=== PATIENT | male | born 1990 | race Caucasian/White ===

== ENCOUNTER 2019-08-06 23:42 | Inpatient (IN) | payer MEDICAID, OTHER ==
[~2019-08-06] VITALS: Ht 182.9 cm; Wt 143.8 kg
[~2019-08-06 23:42] MED LIST: BENZ1TAB70 PO; CHOL400T33 PO; DIVA500T52 PO; HALO10 PO; RISP3 PO; RISPC50 IM
[2019-08-07] MEDS ORDERED: LORazepam 2 MG/ML VIAL IVP ONE (03:15)
[2019-08-07] MEDS ORDERED: SODIUM BICARBONATE 150 MEQ in SODIUM CHLORIDE 0.45% 1,000 ML IV ONE (03:15)
[2019-08-07 03:25] LABS: BASOPHILS % (AUTO) 0.4 % (0.0-2.0); EOSINOPHILS % (AUTO) 0.1 % (1.0-6.0); LYMPHOCYTES # (AUTO) 2.8 K/uL (1.0-4.8); LYMPHOCYTES % (AUTO) 18.7 % (22.0-44.0); MEAN CORPUSCULAR HEMOGLOBIN 30.3 pg (26.0-34.0); MEAN CORPUSCULAR VOLUME 89 fL (80-100); MONOCYTES # (AUTO) 1.8 K/uL (0.1-1.0); NEUTROPHILS # (AUTO) 10.2 K/uL (1.8-7.7); NEUTROPHILS % (AUTO) 68.8 % (40.0-70.0); PLATELET COUNT (AUTO) 384 K/uL (150-450); RED CELL DISTRIBUTION WIDTH 13.5 % (11.5-14.5)
[2019-08-07 03:33] LABS: ANION GAP 13 mmol/L (8-16); CARBON DIOXIDE 22 mmol/L (22-29); CHLORIDE 102 mmol/L (98-107); CREATININE 0.91 mg/dL (0.60-1.30); GLOMERULAR FILTR. RATE CALC > 60 mL/min (>60); GLUCOSE,RANDOM 88 mg/dL (70-110); POTASSIUM 3.4 mmol/L (3.5-5.1); SODIUM SERUM 137 mmol/L (136-145); UREA NITROGEN, BLOOD 8 mg/dL (7-18)
[2019-08-07 03:44] LABS: SALICYLATE < 2.8 mg/dL (2.8-20.0)
[2019-08-07 03:47] LABS: ALANINE AMINOTRANSFERASE 46 U/L (12-78); ALBUMIN 4.3 g/dL (3.4-5.0); ALKALINE PHOSPHATASE 125 U/L (46-116); ASPARTATE AMINOTRANSFERASE 34 U/L (15-37); BILIRUBIN,TOTAL 1.3 mg/dL (0.1-1.0); THYROID STIMULATING HORMONE 1.37 uIU/mL (0.36-3.74)
[2019-08-07 04:00] LABS: ACETAMINOPHEN < 2 mcg/mL (10-30); VALPROIC ACID < 3 mcg/mL (50-100)
[2019-08-07 04:20] LABS: INFLUENZA TYPE A NEGATIVE FOR TYPE A (NEGATIVE); INFLUENZA TYPE B NEGATIVE FOR TYPE B (NEGATIVE)
[2019-08-07] MEDS ORDERED: SODIUM BICARBONATE 150 MEQ in DEXTROSE 5%-0.45% SODIUM CHL 1,000 ML IV ONE (05:30)
[2019-08-07] MEDS ORDERED: ONDANSETRON HCL 4 MG/2 ML VIAL IVP PRN (05:30)
[2019-08-07] MEDS ORDERED: 0.9% SODIUM CHLORIDE 10 ML SYRINGE IVP PRN (05:30)
[2019-08-07] MEDS ORDERED: ACETAMINOPHEN 325 MG TABLET PO PRN (05:30)
[2019-08-07 05:45] LABS: APPEARANCE,URINE CLEAR (CLEAR); BILIRUBIN,URINE NEGATIVE (NEGATIVE); GLUCOSE, URINE (UA) NEGATIVE (NEGATIVE); KETONES,URINE >=80 mg/dL (NEGATIVE); LEUKOCYTE ESTERASE ,URINE NEGATIVE (NEGATIVE); NITRATE,URINE NEGATIVE (NEGATIVE); OCCULT BLOOD,URINE NEGATIVE (NEGATIVE); PH,URINE 6.5 (5.0-8.0); PROTEIN,URINE NEGATIVE (NEGATIVE); UROBILINOGEN,URINE 0.2 mg/dL (<=1.0)
[2019-08-07 05:51] LABS: AMPHET/METH SCREEN,URINE NEGATIVE (NEGATIVE); BARBITURATE SCREEN, URINE NEGATIVE (NEGATIVE); BENZODIAZEPINES SCREEN,URINE NEGATIVE (NEGATIVE); CANNABINOID SCREEN,URINE POSITIVE (NEGATIVE); COCAINE SCREEN,URINE NEGATIVE (NEGATIVE); METHADONE SCREEN, URINE NEGATIVE (NEGATIVE); OPIATE SCREEN,URINE NEGATIVE (NEGATIVE); PHENCYCLIDINE SCREEN,URINE NEGATIVE (NEGATIVE)
[2019-08-07] MEDS ORDERED: POTASSIUM CHL 10 MEQ/WATER 50 ML IV PRN (08:15)
[2019-08-07] MEDS ORDERED: POTASSIUM CHLORIDE 20 MEQ ER TABLET PO PRN (08:15)
[2019-08-07] MEDS ORDERED: MAGNESIUM HYDROXIDE SUSPENSION 30 ML UDCUP PO PRN (08:15)
[2019-08-07] MEDS: DOCUSATE SODIUM 100 MG CAPSULE PO SCH (08:45)
[2019-08-07] MEDS: FAMOTIDINE 20 MG TABLET PO SCH (09:30)
[2019-08-07 13:07] LABS: BASOPHILS % (AUTO) 0.3 % (0.0-2.0); EOSINOPHILS % (AUTO) 0.2 % (1.0-6.0); HEMATOCRIT 38.3 % (41-53); HEMOGLOBIN 13.1 g/dL (13.5-17.5); LYMPHOCYTES # (AUTO) 2.2 K/uL (1.0-4.8); LYMPHOCYTES % (AUTO) 20.7 % (22.0-44.0); MEAN CORPUSCULAR HEMOGLOBIN 30.5 pg (26.0-34.0); MEAN CORPUSCULAR HGB CONC 34.3 G/dL (31.0-37.0); MEAN CORPUSCULAR VOLUME 89 fL (80-100); MONOCYTES # (AUTO) 0.7 K/uL (0.1-1.0); MONOCYTES % (AUTO) 6.1 % (2.0-9.0); NEUTROPHILS # (AUTO) 7.7 K/uL (1.8-7.7); NEUTROPHILS % (AUTO) 72.7 % (40.0-70.0); PLATELET COUNT (AUTO) 353 K/uL (150-450); RED CELL DISTRIBUTION WIDTH 13.2 % (11.5-14.5)
[2019-08-07 13:19] LABS: ANION GAP 12 mmol/L (8-16); CALCIUM, TOTAL 8.7 mg/dL (8.8-10.5); CARBON DIOXIDE 26 mmol/L (22-29); CHLORIDE 103 mmol/L (98-107); CREATININE 0.74 mg/dL (0.60-1.30); GLOMERULAR FILTR. RATE CALC > 60 mL/min (>60); GLUCOSE,RANDOM 128 mg/dL (70-110); POTASSIUM 3.4 mmol/L (3.5-5.1); SODIUM SERUM 141 mmol/L (136-145); UREA NITROGEN, BLOOD 5 mg/dL (7-18)
[2019-08-07 13:26] LABS: ALANINE AMINOTRANSFERASE 40 U/L (12-78); ALKALINE PHOSPHATASE 122 U/L (46-116); ASPARTATE AMINOTRANSFERASE 30 U/L (15-37); BILIRUBIN,TOTAL 1.3 mg/dL (0.1-1.0); TOTAL PROTEIN, SERUM 7.6 g/dL (6.4-8.2)
[2019-08-07] MEDS ORDERED: BENZ1TAB10 PO (14:15)
[2019-08-07] MEDS ORDERED: LORazepam 2 MG TABLET PO ONE (14:15)
[2019-08-07] MEDS ORDERED: CHOL400T56 PO (14:15)
[2019-08-07] MEDS: HEPARIN SODIUM,PORCINE 5,000 UNITS/ML VIAL SQ SCH (16:00)
[2019-08-07 18:35] VITALS: BP 143/89
[2019-08-07] MEDS ORDERED: INFLUENZA VIRUS VACCINE QVS 2019-20 (3YR+)/PF 60 MCG/0.5 ML SYRINGE IM ONE (20:45)
[2019-08-07] MEDS: ZOLPIDEM TARTRATE 10 MG TABLET PO PRN (21:28)
[2019-08-07] MEDS: LORazepam 2 MG TABLET PO PRN (21:29)
[2019-08-07] MEDS ORDERED: POTASSIUM CHLORIDE 20 MEQ ER TABLET PO ONE (22:30)
[2019-08-08 00:11] VITALS: BP 140/97
[2019-08-08] MEDS: LORazepam 2 MG TABLET PO PRN ×3 (02:39→20:17)
[2019-08-08 08:23] VITALS: BP 109/83
[2019-08-08] MEDS: FAMOTIDINE 20 MG TABLET PO SCH (09:04)
[2019-08-08] MEDS: DOCUSATE SODIUM 100 MG CAPSULE PO SCH ×2 (09:05→16:14)
[2019-08-08] MEDS: HEPARIN SODIUM,PORCINE 5,000 UNITS/ML VIAL SQ SCH ×2 (09:17)
[2019-08-08 09:30] LABS: CHOL/HDL RATIO 3.5 (4.2-7.3); POTASSIUM 4.6 mmol/L (3.5-5.1)
[2019-08-08 16:00] VITALS: BP 137/89
[2019-08-08] MEDS: HALOPERIDOL 5 MG TABLET PO PRN ×2 (16:14→20:17)
[2019-08-08] MEDS: ZOLPIDEM TARTRATE 10 MG TABLET PO PRN (20:17)
[2019-08-09 00:03] VITALS: BP 141/91
[2019-08-09] MEDS: FAMOTIDINE 20 MG TABLET PO SCH (08:03)
[2019-08-09] MEDS: DOCUSATE SODIUM 100 MG CAPSULE PO SCH ×2 (08:03→16:28)
[2019-08-09 08:24] VITALS: BP 134/83
[2019-08-09] MEDS ORDERED: RisperiDONE MICROSPHERES 50 MG/2 ML SYRINGE IM SCH (09:00)
[2019-08-09] MEDS: LORazepam 2 MG TABLET PO PRN ×2 (10:33→16:32)
[2019-08-09 16:00] VITALS: BP 131/80
[2019-08-09] MEDS: ZOLPIDEM TARTRATE 10 MG TABLET PO PRN (20:05)
[2019-08-09] MEDS: BENZTROPINE MESYLATE 2 MG TABLET PO SCH (20:05)
[2019-08-10 01:10] VITALS: BP 138/87
[2019-08-10] MEDS: LORazepam 2 MG TABLET PO PRN ×2 (01:16→05:50)
[2019-08-10] MEDS: ACETAMINOPHEN 325 MG TABLET PO PRN ×2 (04:04→11:09)
[2019-08-10] MEDS: DOCUSATE SODIUM 100 MG CAPSULE PO SCH ×2 (08:33→16:18)
[2019-08-10] MEDS: FAMOTIDINE 20 MG TABLET PO SCH (08:33)
[2019-08-10 13:56] VITALS: BP 127/88
[2019-08-10 18:01] VITALS: BP 136/86
[2019-08-10] MEDS: ZOLPIDEM TARTRATE 10 MG TABLET PO PRN (20:07)
[2019-08-10] MEDS: BENZTROPINE MESYLATE 2 MG TABLET PO SCH (20:31)
[2019-08-11 02:07] VITALS: BP 135/85
[2019-08-11] MEDS: LORazepam 2 MG TABLET PO PRN ×2 (02:22→06:42)
[2019-08-11] MEDS: ACETAMINOPHEN 325 MG TABLET PO PRN (06:42)
[2019-08-11 08:12] VITALS: BP 101/54
[2019-08-11] MEDS: DOCUSATE SODIUM 100 MG CAPSULE PO SCH (08:30)
[2019-08-11] MEDS: FAMOTIDINE 20 MG TABLET PO SCH (08:30)
[2019-08-11] MEDS ORDERED: BENZ2TAB10 PO (08:55)
[2019-08-11] MEDS ORDERED: RISPC50 IM (08:55)
== END 2019-08-11 11:00 | disposition home or self-care (01) | DRG 750 ==
LOC: EMS 23:42 → B2S 08-07 15:49 → B3A 08-07 21:00
PROVIDERS: ADMIT Psychiatry & Neurology Psychiatry; ATTEND Psychiatry & Neurology Psychiatry
DX: F20.0 Paranoid schizophrenia (principal); Z59.0 Homelessness; F12.90 Cannabis use, unspecified, uncomplicated; R94.31 Abnormal electrocardiogram [ECG] [EKG]
CPT/HCPCS: 84132; 84443; 87804; 93005; G0480; G0481; J1644; J2060; J2794; J3490

== ENCOUNTER 2019-08-13 17:49 | Inpatient (IN) | payer MEDICAID ==
[~2019-08-13] VITALS: Ht 175.3 cm; Wt 137.0 kg
[~2019-08-13 17:49] MED LIST changes: -BENZ1TAB70 PO; +BENZ2TAB10 PO; -CHOL400T33 PO; -DIVA500T52 PO; -HALO10 PO; -RISP3 PO
[2019-08-13] MEDS ORDERED: INFLUENZA VIRUS VACCINE QVS 2019-20 (3YR+)/PF 60 MCG/0.5 ML SYRINGE IM ONE (20:45)
[2019-08-13] MEDS: ZOLPIDEM TARTRATE 10 MG TABLET PO PRN (21:24)
[2019-08-13] MEDS: LORazepam 2 MG TABLET PO PRN (21:26)
[2019-08-13] MEDS: LITHIUM CARBONATE 300 MG CAPSULE PO SCH (21:42)
[2019-08-13] MEDS: QUEtiapine FUMARATE 200 MG TABLET PO SCH (21:42)
[2019-08-13 22:56] VITALS: BP_SYST 125; BP_SYST 162; BP_DIAS 85; BP_DIAS 89
[2019-08-14 00:37] VITALS: BP 130/79
[2019-08-14 08:31] LABS: BASOPHILS % (AUTO) 0.2 % (0.0-2.0); EOSINOPHILS % (AUTO) 3.4 % (1.0-6.0); HEMATOCRIT 40.9 % (41-53); HEMOGLOBIN 13.9 g/dL (13.5-17.5); LYMPHOCYTES # (AUTO) 3.1 K/uL (1.0-4.8); LYMPHOCYTES % (AUTO) 31.7 % (22.0-44.0); MEAN CORPUSCULAR HEMOGLOBIN 30.6 pg (26.0-34.0); MEAN CORPUSCULAR HGB CONC 33.9 G/dL (31.0-37.0); MEAN CORPUSCULAR VOLUME 90 fL (80-100); MONOCYTES # (AUTO) 1.5 K/uL (0.1-1.0); NEUTROPHILS # (AUTO) 4.9 K/uL (1.8-7.7); NEUTROPHILS % (AUTO) 49.7 % (40.0-70.0); PLATELET COUNT (AUTO) 412 K/uL (150-450); RED BLOOD CELL COUNT(AUTO) 4.53 MIL/uL (4.50-5.90); RED CELL DISTRIBUTION WIDTH 13.1 % (11.5-14.5)
[2019-08-14 08:33] LABS: HEMOGLOBIN A1C 5.5 % (4.5-6.2)
[2019-08-14] MEDS: QUEtiapine FUMARATE 200 MG TABLET PO SCH ×2 (08:41→16:20)
[2019-08-14] MEDS: LITHIUM CARBONATE 300 MG CAPSULE PO SCH ×2 (08:41→16:20)
[2019-08-14 08:50] LABS: ALANINE AMINOTRANSFERASE 48 U/L (12-78); ALBUMIN 3.8 g/dL (3.4-5.0); ALKALINE PHOSPHATASE 124 U/L (46-116); ANION GAP 8 mmol/L (8-16); ASPARTATE AMINOTRANSFERASE 20 U/L (15-37); BILIRUBIN,TOTAL 0.5 mg/dL (0.1-1.0); CALCIUM, TOTAL 8.7 mg/dL (8.8-10.5); CARBON DIOXIDE 28 mmol/L (22-29); CHLORIDE 107 mmol/L (98-107); CHOL/HDL RATIO 4.5 (4.2-7.3); CHOLESTEROL 112 mg/dL (131-200); CREATININE 0.84 mg/dL (0.60-1.30); FREE T4 (FREE THYROXINE) 0.95 ng/dL (0.76-1.46); GLOMERULAR FILTR. RATE CALC > 60 mL/min (>60); GLUCOSE,RANDOM 102 mg/dL (70-110); HDL CHOLESTEROL 25 mg/dL (40-60); LDL CHOL (CALC.) 68 mg/dL (0-130); POTASSIUM 4.5 mmol/L (3.5-5.1); SODIUM SERUM 143 mmol/L (136-145); THYROID STIMULATING HORMONE 1.21 uIU/mL (0.36-3.74); TOTAL PROTEIN, SERUM 7.2 g/dL (6.4-8.2); TRIGLYCERIDES 94 mg/dL (15-150); UREA NITROGEN, BLOOD 10 mg/dL (7-18)
[2019-08-14 08:58] VITALS: BP 112/90
[2019-08-14 16:15] VITALS: BP 154/85
[2019-08-14] MEDS: LORazepam 2 MG TABLET PO PRN ×2 (16:20→21:31)
[2019-08-14] MEDS: ZOLPIDEM TARTRATE 10 MG TABLET PO PRN (21:31)
[2019-08-14] MEDS: BENZTROPINE MESYLATE 2 MG TABLET PO SCH (21:31)
[2019-08-15 00:13] VITALS: BP 116/90
[2019-08-15 08:09] LABS: APPEARANCE,URINE CLOUDY (CLEAR); BILIRUBIN,URINE NEGATIVE (NEGATIVE); GLUCOSE, URINE (UA) NEGATIVE (NEGATIVE); KETONES,URINE NEGATIVE (NEGATIVE); LEUKOCYTE ESTERASE ,URINE NEGATIVE (NEGATIVE); NITRATE,URINE NEGATIVE (NEGATIVE); OCCULT BLOOD,URINE NEGATIVE (NEGATIVE); PROTEIN,URINE NEGATIVE (NEGATIVE); UROBILINOGEN,URINE 0.2 mg/dL (<=1.0)
[2019-08-15 08:14] LABS: AMPHET/METH SCREEN,URINE NEGATIVE (NEGATIVE); BARBITURATE SCREEN, URINE NEGATIVE (NEGATIVE); BENZODIAZEPINES SCREEN,URINE NEGATIVE (NEGATIVE); CANNABINOID SCREEN,URINE POSITIVE (NEGATIVE); COCAINE SCREEN,URINE NEGATIVE (NEGATIVE); METHADONE SCREEN, URINE NEGATIVE (NEGATIVE); OPIATE SCREEN,URINE NEGATIVE (NEGATIVE)
[2019-08-15 08:21] VITALS: BP 123/82
[2019-08-15] MEDS: LITHIUM CARBONATE 300 MG CAPSULE PO SCH ×2 (08:27→16:38)
[2019-08-15] MEDS: QUEtiapine FUMARATE 200 MG TABLET PO SCH ×2 (08:28→16:38)
[2019-08-15 09:06] LABS: BACTERIA,URINE None Seen /HPF (None Seen); RBC,URINE None Seen /HPF (0-2); WBC,URINE None Seen /HPF (0-5)
[2019-08-15 09:38] LABS: PHENCYCLIDINE SCREEN,URINE NEGATIVE (NEGATIVE)
[2019-08-15 16:06] VITALS: BP 129/79
[2019-08-15] MEDS: BENZTROPINE MESYLATE 2 MG TABLET PO SCH (20:25)
[2019-08-15] MEDS: ZOLPIDEM TARTRATE 10 MG TABLET PO PRN (20:25)
[2019-08-16 00:02] VITALS: BP 140/82
[2019-08-16 08:00] VITALS: BP 131/74
[2019-08-16] MEDS: LITHIUM CARBONATE 300 MG CAPSULE PO SCH ×2 (08:11→16:21)
[2019-08-16] MEDS: QUEtiapine FUMARATE 200 MG TABLET PO SCH ×2 (08:12→16:21)
[2019-08-16] MEDS: LORazepam 2 MG TABLET PO PRN ×3 (12:15→20:33)
[2019-08-16 16:46] VITALS: BP 128/94
[2019-08-16] MEDS ORDERED: ALBUTEROL SULFATE HFA 90 MCG/PUFF 8 GM INHALER IH PRN (20:15)
[2019-08-16] MEDS ORDERED: LOPERAMIDE HCL 2 MG CAPSULE PO PRN (20:15)
[2019-08-16] MEDS ORDERED: ACETAMINOPHEN 325 MG TABLET PO PRN (20:15)
[2019-08-16] MEDS ORDERED: BACITRACIN 28.4 GM OINTMENT TP PRN (20:15)
[2019-08-16] MEDS ORDERED: MAGNESIUM HYDROXIDE SUSPENSION 30 ML UDCUP PO PRN (20:15)
[2019-08-16] MEDS ORDERED: BENZOCAINE/MENTHOL LOZENGE MM PRN (20:15)
[2019-08-16] MEDS ORDERED: IBUPROFEN 600 MG TABLET PO PRN (20:15)
[2019-08-16] MEDS ORDERED: MAG HYDROX/AL HYDROX/SIMETH ES 30 ML SUSPENSION UDCUP PO PRN (20:15)
[2019-08-16] MEDS ORDERED: DOCUSATE SODIUM 100 MG CAPSULE PO PRN (20:15)
[2019-08-16] MEDS ORDERED: ONDANSETRON HCL 4 MG TABLET PO PRN (20:15)
[2019-08-16] MEDS ORDERED: PETROLATUM,WHITE 28 GM JELLY TP PRN (20:15)
[2019-08-16] MEDS ORDERED: OMEPRAZOLE 20 MG CAPSULE PO PRN (20:15)
[2019-08-16] MEDS ORDERED: CloNIDine HCL 0.1 MG TABLET PO PRN (20:15)
[2019-08-16] MEDS: BENZTROPINE MESYLATE 2 MG TABLET PO SCH (20:34)
[2019-08-16] MEDS: HALOPERIDOL 5 MG TABLET PO PRN (20:34)
[2019-08-16] MEDS: ZOLPIDEM TARTRATE 10 MG TABLET PO PRN (20:34)
[2019-08-17 00:53] VITALS: BP 122/83
[2019-08-17] MEDS: LORazepam 2 MG TABLET PO PRN ×3 (01:34→12:22)
[2019-08-17] MEDS: HALOPERIDOL 5 MG TABLET PO PRN (03:28)
[2019-08-17] MEDS: QUEtiapine FUMARATE 200 MG TABLET PO SCH (08:17)
[2019-08-17] MEDS: LITHIUM CARBONATE 300 MG CAPSULE PO SCH (08:17)
[2019-08-17 08:23] VITALS: BP 121/83
[2019-08-17] MEDS ORDERED: BENZ2TAB10 PO (12:59)
[2019-08-17] MEDS ORDERED: QUET200T PO (12:59)
[2019-08-17] MEDS ORDERED: LITH300C3 PO (12:59)
[2019-08-23] MEDS ORDERED: PALIPERIDONE PALMITATE 234 MG/1.5 ML SYRINGE IM SCH (09:00)
== END 2019-08-17 15:18 | disposition home or self-care (01) | DRG 750 ==
LOC: B3A 19:17
PROVIDERS: ADMIT Psychiatry & Neurology Psychiatry; ATTEND Psychiatry & Neurology Psychiatry
DX: F25.9 Schizoaffective disorder, unspecified (principal); Z59.0 Homelessness; E87.6 Hypokalemia; F12.90 Cannabis use, unspecified, uncomplicated; F41.9 Anxiety disorder, unspecified; G47.00 Insomnia, unspecified; K59.00 Constipation, unspecified; F17.200 Nicotine dependence, unspecified, uncomplicated; Z71.6 Tobacco abuse counseling; Z23 Encounter for immunization
CPT/HCPCS: 80307; 83036; 84439; 84443; 87081; 90686

== ENCOUNTER 2021-02-22 10:53 | Inpatient (IN) | payer MEDICAID, OTHER ==
[~2021-02-22] VITALS: Ht 177.8 cm; Wt 150.1 kg
[~2021-02-22 10:53] MED LIST changes: +LITH300C3 PO; +QUET200T PO; -RISPC50 IM
[2021-02-22] MEDS ORDERED: LORazepam 2 MG/ML VIAL IM ONE ×2 (12:00→16:45)
[2021-02-22] MEDS ORDERED: DiphenhydrAMINE HCL 50 MG/ML VIAL IM ONE ×2 (12:00→16:45)
[2021-02-22] MEDS ORDERED: HALOPERIDOL LACTATE 5 MG/ML VIAL IM ONE ×2 (12:00→16:45)
[2021-02-22 12:57] LABS: COVID AG,FIA SOURCE NASOPHARYNGEAL
[2021-02-22 13:03] LABS: BASOPHILS % (AUTO) 0.2 % (0.0-2.0); EOSINOPHILS % (AUTO) 1.1 % (1.0-6.0); HEMOGLOBIN 13.1 g/dL (13.5-17.5); LYMPHOCYTES # (AUTO) 2.5 K/uL (1.0-4.8); LYMPHOCYTES % (AUTO) 20.8 % (22.0-44.0); MEAN CORPUSCULAR HEMOGLOBIN 29.9 pg (26.0-34.0); MEAN CORPUSCULAR HGB CONC 33.5 G/dL (31.0-37.0); MEAN CORPUSCULAR VOLUME 89 fL (80-100); MONOCYTES # (AUTO) 1.3 K/uL (0.1-1.0); MONOCYTES % (AUTO) 10.4 % (2.0-9.0); NEUTROPHILS # (AUTO) 8.1 K/uL (1.8-7.7); NEUTROPHILS % (AUTO) 67.5 % (40.0-70.0); PLATELET COUNT (AUTO) 413 K/uL (150-450); RED BLOOD CELL COUNT(AUTO) 4.37 MIL/uL (4.50-5.90); RED CELL DISTRIBUTION WIDTH 13.3 % (11.5-14.5)
[2021-02-22 13:09] LABS: ANION GAP 15 mmol/L (8-16); CALCIUM, TOTAL 8.9 mg/dL (8.8-10.5); CARBON DIOXIDE 23 mmol/L (22-29); CHLORIDE 107 mmol/L (98-107); CREATININE 0.63 mg/dL (0.60-1.30); GLOMERULAR FILTR. RATE CALC > 60 mL/min (>60); GLUCOSE,RANDOM 100 mg/dL (70-110); POTASSIUM 3.3 mmol/L (3.5-5.1); SODIUM SERUM 145 mmol/L (136-145); UREA NITROGEN, BLOOD 8 mg/dL (7-18)
[2021-02-22 13:15] LABS: ALANINE AMINOTRANSFERASE 36 U/L (12-78); ALBUMIN 3.9 g/dL (3.4-5.0); ALKALINE PHOSPHATASE 95 U/L (46-116); ASPARTATE AMINOTRANSFERASE 19 U/L (15-37); BILIRUBIN,TOTAL 0.5 mg/dL (0.1-1.0); TOTAL PROTEIN, SERUM 7.8 g/dL (6.4-8.2)
[2021-02-22] MEDS ORDERED: POTASSIUM CHLORIDE 20 MEQ ER TABLET PO ONE (13:30)
[2021-02-23] MEDS: HALOPERIDOL 5 MG TABLET PO PRN ×4 (02:30→16:51)
[2021-02-23] MEDS: LORazepam 2 MG TABLET PO PRN ×5 (02:30→22:34)
[2021-02-23] MEDS: ZOLPIDEM TARTRATE 10 MG TABLET PO PRN ×2 (02:30→20:38)
[2021-02-23 02:38] LABS: APPEARANCE,URINE CLOUDY (CLEAR); GLUCOSE, URINE (UA) NEGATIVE (NEGATIVE); KETONES,URINE 15 mg/dL (NEGATIVE); LEUKOCYTE ESTERASE ,URINE NEGATIVE (NEGATIVE); NITRATE,URINE NEGATIVE (NEGATIVE); OCCULT BLOOD,URINE NEGATIVE (NEGATIVE); PH,URINE 6.5 (5.0-8.0); PROTEIN,URINE TRACE (NEGATIVE); UROBILINOGEN,URINE 0.2 mg/dL (<=1.0)
[2021-02-23 02:43] LABS: AMPHET/METH SCREEN,URINE NEGATIVE (NEGATIVE); BARBITURATE SCREEN, URINE NEGATIVE (NEGATIVE); BENZODIAZEPINES SCREEN,URINE NEGATIVE (NEGATIVE); CANNABINOID SCREEN,URINE POSITIVE (NEGATIVE); COCAINE SCREEN,URINE NEGATIVE (NEGATIVE); METHADONE SCREEN, URINE NEGATIVE (NEGATIVE); OPIATE SCREEN,URINE NEGATIVE (NEGATIVE)
[2021-02-23 02:49] LABS: BILIRUBIN,URINE PRELIM. POSITIVE (NEGATIVE)
[2021-02-23 02:50] LABS: BACTERIA,URINE Rare /HPF (None Seen); RBC,URINE 0-2 /HPF (0-2); SQUAMOUS EPITHELIAL CELL,UR Few /LPF (None Seen); WBC,URINE 0-2 /HPF (0-5)
[2021-02-23 02:51] LABS: PHENCYCLIDINE SCREEN,URINE NEGATIVE (NEGATIVE)
[2021-02-23] MEDS ORDERED: LITHIUM CARBONATE 300 MG CAPSULE PO ONE (09:15)
[2021-02-23 09:23] LABS: CHOL/HDL RATIO 4.4 (4.2-7.3)
[2021-02-23 13:13] VITALS: BP 154/116
[2021-02-23 16:30] VITALS: BP 131/82
[2021-02-24] MEDS: HALOPERIDOL 5 MG TABLET PO PRN ×4 (07:21→21:13)
[2021-02-24] MEDS: LORazepam 2 MG TABLET PO PRN ×4 (07:21→22:39)
[2021-02-24 08:32] VITALS: BP 133/87
[2021-02-24] MEDS: NICOTINE 21 MG/24 HOUR PATCH TD SCH (10:21)
[2021-02-24] MEDS: LITHIUM CARBONATE 300 MG CAPSULE PO SCH ×2 (11:54→15:57)
[2021-02-24] MEDS: QUEtiapine FUMARATE 200 MG TABLET PO SCH ×2 (11:54→15:57)
[2021-02-24 16:45] VITALS: BP 128/71
[2021-02-24] MEDS ORDERED: LOPERAMIDE HCL 2 MG CAPSULE PO PRN (18:00)
[2021-02-24] MEDS ORDERED: BENZOCAINE/MENTHOL LOZENGE PO PRN (18:00)
[2021-02-24] MEDS ORDERED: IBUPROFEN 600 MG TABLET PO PRN (18:00)
[2021-02-24] MEDS ORDERED: CloNIDine HCL 0.1 MG TABLET PO PRN (18:00)
[2021-02-24] MEDS ORDERED: ALBUTEROL SULFATE HFA 90 MCG/PUFF 8 GM INHALER IH PRN (18:00)
[2021-02-24] MEDS ORDERED: ACETAMINOPHEN 325 MG TABLET PO PRN (18:00)
[2021-02-24] MEDS ORDERED: BACITRACIN 28 GM OINTMENT TP PRN (18:00)
[2021-02-24] MEDS ORDERED: PETROLATUM,WHITE 28 GM JELLY TP PRN (18:00)
[2021-02-24] MEDS ORDERED: MAGNESIUM HYDROXIDE SUSPENSION 30 ML UDCUP PO PRN (18:00)
[2021-02-24] MEDS ORDERED: DOCUSATE SODIUM 100 MG CAPSULE PO PRN (18:00)
[2021-02-24] MEDS ORDERED: MAG HYDROX/AL HYDROX/SIMETH ES 30 ML SUSPENSION UDCUP PO PRN (18:00)
[2021-02-24] MEDS ORDERED: ONDANSETRON HCL 4 MG TABLET PO PRN (18:00)
[2021-02-24] MEDS: ZOLPIDEM TARTRATE 10 MG TABLET PO PRN (20:14)
[2021-02-25] MEDS: HALOPERIDOL 5 MG TABLET PO PRN ×4 (08:35→20:00)
[2021-02-25] MEDS: QUEtiapine FUMARATE 200 MG TABLET PO SCH ×2 (08:35→16:30)
[2021-02-25] MEDS: LITHIUM CARBONATE 300 MG CAPSULE PO SCH ×2 (08:35→16:30)
[2021-02-25] MEDS: LORazepam 2 MG TABLET PO PRN ×3 (08:35→20:00)
[2021-02-25] MEDS: NICOTINE 21 MG/24 HOUR PATCH TD SCH (08:42)
[2021-02-25 16:00] VITALS: BP 138/85
[2021-02-25] MEDS: ZOLPIDEM TARTRATE 10 MG TABLET PO PRN (20:34)
[2021-02-26] MEDS: HALOPERIDOL 5 MG TABLET PO PRN ×4 (01:36→20:09)
[2021-02-26] MEDS: LORazepam 2 MG TABLET PO PRN ×4 (01:36→20:42)
[2021-02-26] MEDS: LITHIUM CARBONATE 300 MG CAPSULE PO SCH ×2 (08:01→16:28)
[2021-02-26] MEDS: NICOTINE 21 MG/24 HOUR PATCH TD SCH (08:01)
[2021-02-26] MEDS: QUEtiapine FUMARATE 200 MG TABLET PO SCH ×2 (08:01→16:28)
[2021-02-26 16:34] VITALS: BP 140/93
[2021-02-26 16:38] VITALS: BP 140/93
[2021-02-26] MEDS: ZOLPIDEM TARTRATE 10 MG TABLET PO PRN (20:10)
[2021-02-27] MEDS: LITHIUM CARBONATE 300 MG CAPSULE PO SCH ×2 (08:24→17:11)
[2021-02-27] MEDS: HALOPERIDOL 5 MG TABLET PO PRN ×2 (08:24→14:59)
[2021-02-27] MEDS: QUEtiapine FUMARATE 200 MG TABLET PO SCH ×2 (08:25→17:06)
[2021-02-27 08:46] VITALS: BP 176/115
[2021-02-27] MEDS: NICOTINE 21 MG/24 HOUR PATCH TD SCH (08:46)
[2021-02-27] MEDS: LORazepam 2 MG TABLET PO PRN ×2 (14:59→19:56)
[2021-02-27 15:30] VITALS: BP_SYST 130; BP_SYST 136; BP_DIAS 74
[2021-02-27 16:38] VITALS: BP 136/74
[2021-02-27] MEDS: ZOLPIDEM TARTRATE 10 MG TABLET PO PRN (20:36)
[2021-02-28] MEDS: LITHIUM CARBONATE 300 MG CAPSULE PO SCH ×2 (08:12→16:04)
[2021-02-28] MEDS: QUEtiapine FUMARATE 200 MG TABLET PO SCH ×2 (08:12→16:04)
[2021-02-28] MEDS: LORazepam 2 MG TABLET PO PRN ×2 (08:12→23:37)
[2021-02-28] MEDS: NICOTINE 21 MG/24 HOUR PATCH TD SCH (08:14)
[2021-02-28 16:11] VITALS: BP 137/82
[2021-02-28] MEDS: ZOLPIDEM TARTRATE 10 MG TABLET PO PRN (23:37)
[2021-03-01] MEDS: HALOPERIDOL 5 MG TABLET PO PRN ×2 (01:19→06:55)
[2021-03-01] MEDS: LORazepam 2 MG TABLET PO PRN (06:55)
[2021-03-01 08:00] VITALS: BP 137/82
[2021-03-01] MEDS: QUEtiapine FUMARATE 200 MG TABLET PO SCH ×2 (08:01→16:16)
[2021-03-01] MEDS: LITHIUM CARBONATE 300 MG CAPSULE PO SCH ×2 (08:01→16:16)
[2021-03-01] MEDS: NICOTINE 21 MG/24 HOUR PATCH TD SCH (08:03)
[2021-03-01 16:10] VITALS: BP 140/82
[2021-03-01 17:29] LABS: COVID AG,FIA SOURCE NASOPHARYNGEAL
[2021-03-02] MEDS: LORazepam 2 MG TABLET PO PRN ×3 (03:23→20:17)
[2021-03-02] MEDS: HALOPERIDOL 5 MG TABLET PO PRN ×2 (03:23→16:37)
[2021-03-02] MEDS: ZOLPIDEM TARTRATE 10 MG TABLET PO PRN ×2 (03:24→20:29)
[2021-03-02 05:02] LABS: BAND NEUTROPHILS % (MANUAL) 0 % (0-5)
[2021-03-02 05:12] LABS: HEMATOCRIT 38.2 % (41-53); HEMOGLOBIN 12.7 g/dL (13.5-17.5); MEAN CORPUSCULAR HEMOGLOBIN 30.1 pg (26.0-34.0); MEAN CORPUSCULAR HGB CONC 33.2 G/dL (31.0-37.0); MEAN CORPUSCULAR VOLUME 91 fL (80-100); PLATELET COUNT (AUTO) 415 K/uL (150-450); RED BLOOD CELL COUNT(AUTO) 4.22 MIL/uL (4.50-5.90)
[2021-03-02 05:35] LABS: ANION GAP 5 mmol/L (8-16); CALCIUM, TOTAL 8.4 mg/dL (8.8-10.5); CARBON DIOXIDE 26 mmol/L (22-29); CHLORIDE 106 mmol/L (98-107); CREATININE 0.65 mg/dL (0.60-1.30); GLOMERULAR FILTR. RATE CALC > 60 mL/min (>60); GLUCOSE,RANDOM 100 mg/dL (70-110); PHOSPHORUS 4.2 mg/dL (2.5-4.9); POTASSIUM 3.8 mmol/L (3.5-5.1); SODIUM SERUM 137 mmol/L (136-145); UREA NITROGEN, BLOOD 11 mg/dL (7-18)
[2021-03-02] MEDS: QUEtiapine FUMARATE 200 MG TABLET PO SCH ×2 (07:51→16:36)
[2021-03-02] MEDS: NICOTINE 21 MG/24 HOUR PATCH TD SCH (07:51)
[2021-03-02] MEDS: LITHIUM CARBONATE 300 MG CAPSULE PO SCH ×2 (07:51→16:36)
[2021-03-02 08:52] VITALS: BP 114/65
[2021-03-02 09:21] LABS: LYMPHOCYTES % (MANUAL) 26 % (22-44); MONOCYTES % (MANUAL) 6 % (2-9); SEGMENTED NEUTROPHILS % 68 % (40-70)
[2021-03-02 16:15] VITALS: BP 142/94
[2021-03-03] MEDS: HALOPERIDOL 5 MG TABLET PO PRN ×4 (00:29→18:56)
[2021-03-03] MEDS: LORazepam 2 MG TABLET PO PRN ×4 (00:30→18:56)
[2021-03-03] MEDS: LITHIUM CARBONATE 300 MG CAPSULE PO SCH ×2 (08:21→16:28)
[2021-03-03] MEDS: QUEtiapine FUMARATE 200 MG TABLET PO SCH ×2 (08:21→16:28)
[2021-03-03] MEDS: NICOTINE 21 MG/24 HOUR PATCH TD SCH (08:22)
[2021-03-03 16:18] VITALS: BP 157/94
[2021-03-03 16:28] VITALS: BP 129/79
[2021-03-03 17:05] LABS: GLUCOMETER DEV NAME(LOC) 3E.C; GLUCOSE,POINT OF CARE 150 MG/DL (70-110)
[2021-03-04] MEDS: LORazepam 2 MG TABLET PO PRN ×3 (02:25→20:09)
[2021-03-04 08:22] VITALS: BP 121/79
[2021-03-04] MEDS: PALIPERIDONE PALMITATE 234 MG/1.5 ML SYRINGE IM SCH ×3 (08:27→09:35)
[2021-03-04] MEDS: QUEtiapine FUMARATE 200 MG TABLET PO SCH ×2 (08:27→16:38)
[2021-03-04] MEDS: OMEPRAZOLE 20 MG CAPSULE PO PRN (08:27)
[2021-03-04] MEDS: NICOTINE 21 MG/24 HOUR PATCH TD SCH (08:27)
[2021-03-04] MEDS: HALOPERIDOL 5 MG TABLET PO PRN ×2 (08:27→16:38)
[2021-03-04] MEDS: LITHIUM CARBONATE 300 MG CAPSULE PO SCH ×2 (08:29→16:38)
[2021-03-04 16:30] VITALS: BP 145/89
[2021-03-04] MEDS: ZOLPIDEM TARTRATE 10 MG TABLET PO PRN (20:21)
[2021-03-05] MEDS: LORazepam 2 MG TABLET PO PRN ×4 (01:12→20:33)
[2021-03-05] MEDS: HALOPERIDOL 5 MG TABLET PO PRN ×2 (01:12→16:43)
[2021-03-05 07:00] LABS: % IRON SATURATION 13.1 % (30-44)
[2021-03-05] MEDS: LITHIUM CARBONATE 300 MG CAPSULE PO SCH ×2 (07:55→16:42)
[2021-03-05] MEDS: QUEtiapine FUMARATE 200 MG TABLET PO SCH ×2 (07:55→16:42)
[2021-03-05] MEDS: OMEPRAZOLE 20 MG CAPSULE PO PRN (07:55)
[2021-03-05] MEDS: NICOTINE 21 MG/24 HOUR PATCH TD SCH (07:58)
[2021-03-05 08:31] VITALS: BP 140/76
[2021-03-05 16:10] VITALS: BP 141/95
[2021-03-05] MEDS: ZOLPIDEM TARTRATE 10 MG TABLET PO PRN (20:33)
[2021-03-06] MEDS: QUEtiapine FUMARATE 200 MG TABLET PO SCH (07:18)
[2021-03-06] MEDS: LITHIUM CARBONATE 300 MG CAPSULE PO SCH (07:18)
[2021-03-06] MEDS: LORazepam 2 MG TABLET PO PRN (07:18)
[2021-03-06] MEDS: NICOTINE 21 MG/24 HOUR PATCH TD SCH (07:19)
[2021-03-06] MEDS: OMEPRAZOLE 20 MG CAPSULE PO PRN (07:19)
[2021-03-06] MEDS ORDERED: MULTIVITAMINS WITH IRON TABLET PO SCH (08:00)
[2021-03-06 08:14] VITALS: BP 135/83
== END 2021-03-06 15:15 | disposition home or self-care (01) | DRG 750 ==
LOC: EMS 10:53 → 3EC 02-23 10:48 → EMS 02-23 12:49 → 3EC 02-25 00:55
PROVIDERS: ADMIT Psychiatry & Neurology Psychiatry; ATTEND Psychiatry & Neurology Psychiatry
DX: F25.9 Schizoaffective disorder, unspecified (principal); R45.851 Suicidal ideations; Z91.14 Patient's other noncompliance with medication regimen; F12.90 Cannabis use, unspecified, uncomplicated; F31.9 Bipolar disorder, unspecified; F41.9 Anxiety disorder, unspecified; G47.00 Insomnia, unspecified; F17.210 Nicotine dependence, cigarettes, uncomplicated; K59.00 Constipation, unspecified; Z79.899 Other long term (current) drug therapy; Z88.7 Allergy status to serum and vaccine; Z20.822 Contact with and (suspected) exposure to COVID-19
CPT/HCPCS: 80048; 80053; 80061; 80178; 81001; 82962; 83540; 83550; 83735; 84100; 85007; 85025; 85027; 99285; G0480; J1200; J1630; J2060

== ENCOUNTER 2021-03-20 16:18 | Inpatient (IN) | payer MEDICAID, OTHER ==
[~2021-03-20] VITALS: Ht 175.3 cm; Wt 149.9 kg
[~2021-03-20 16:18] MED LIST changes: -BENZ2TAB10 PO
[2021-03-20] MEDS ORDERED: DiphenhydrAMINE HCL 50 MG/ML VIAL IM ONE (17:45)
[2021-03-20] MEDS ORDERED: HALOPERIDOL LACTATE 5 MG/ML VIAL IM ONE (17:45)
[2021-03-20] MEDS ORDERED: LORazepam 2 MG/ML VIAL IM ONE (17:45)
[2021-03-20] MEDS ORDERED: FLUP10TA13 PO (17:47)
[2021-03-20] MEDS ORDERED: BENZ2TAB10 PO (17:47)
[2021-03-20] MEDS ORDERED: PALI39DI IM (17:52)
[2021-03-20] MEDS ORDERED: LORazepam 2 MG TABLET PO ONE (18:00)
[2021-03-20] MEDS ORDERED: HALOPERIDOL 5 MG TABLET PO ONE (18:00)
[2021-03-20] MEDS ORDERED: DiphenhydrAMINE HCL 25 MG CAPSULE PO ONE (18:45)
[2021-03-20] MEDS ORDERED: QUEtiapine FUMARATE 100 MG TABLET PO ONE (18:45)
[2021-03-20 19:41] LABS: COVID AG,FIA SOURCE NASOPHARYNGEAL
[2021-03-20 19:48] LABS: AMPHET/METH SCREEN,URINE NEGATIVE (NEGATIVE); BARBITURATE SCREEN, URINE NEGATIVE (NEGATIVE); BENZODIAZEPINES SCREEN,URINE NEGATIVE (NEGATIVE); CANNABINOID SCREEN,URINE POSITIVE (NEGATIVE); COCAINE SCREEN,URINE NEGATIVE (NEGATIVE); METHADONE SCREEN, URINE NEGATIVE (NEGATIVE); OPIATE SCREEN,URINE NEGATIVE (NEGATIVE)
[2021-03-20 19:49] LABS: PHENCYCLIDINE SCREEN,URINE NEGATIVE (NEGATIVE)
[2021-03-20] MEDS: LITHIUM CARBONATE 300 MG CAPSULE PO SCH (20:23)
[2021-03-20 21:55] VITALS: BP 145/85
[2021-03-21 02:52] VITALS: BP 135/91
[2021-03-21] MEDS: LORazepam 2 MG TABLET PO PRN ×2 (04:28→08:28)
[2021-03-21] MEDS: HALOPERIDOL 5 MG TABLET PO PRN ×2 (04:28→08:28)
[2021-03-21] MEDS ORDERED: ONDANSETRON HCL 4 MG TABLET PO PRN (08:15)
[2021-03-21] MEDS ORDERED: BENZOCAINE/MENTHOL LOZENGE PO PRN (08:15)
[2021-03-21] MEDS ORDERED: ACETAMINOPHEN 325 MG TABLET PO PRN (08:15)
[2021-03-21] MEDS ORDERED: PETROLATUM,WHITE 28 GM JELLY TP PRN (08:15)
[2021-03-21] MEDS ORDERED: BACITRACIN 28 GM OINTMENT TP PRN (08:15)
[2021-03-21] MEDS ORDERED: LOPERAMIDE HCL 2 MG CAPSULE PO PRN (08:15)
[2021-03-21] MEDS ORDERED: ALBUTEROL SULFATE HFA 90 MCG/PUFF 8 GM INHALER IH PRN (08:15)
[2021-03-21] MEDS ORDERED: DOCUSATE SODIUM 100 MG CAPSULE PO PRN (08:15)
[2021-03-21] MEDS ORDERED: CloNIDine HCL 0.1 MG TABLET PO PRN (08:15)
[2021-03-21] MEDS ORDERED: MAGNESIUM HYDROXIDE SUSPENSION 30 ML UDCUP PO PRN (08:15)
[2021-03-21] MEDS ORDERED: IBUPROFEN 600 MG TABLET PO PRN (08:15)
[2021-03-21] MEDS: QUEtiapine FUMARATE 200 MG TABLET PO SCH ×2 (08:27→16:18)
[2021-03-21] MEDS: LITHIUM CARBONATE 300 MG CAPSULE PO SCH ×2 (08:27→16:18)
[2021-03-21] MEDS: ATENOLOL 50 MG TABLET PO SCH (08:28)
[2021-03-21] MEDS: BACITRACIN 28 GM OINTMENT TP SCH ×2 (08:28→16:19)
[2021-03-21 08:35] VITALS: BP 124/81
[2021-03-21 16:12] VITALS: BP 136/70
[2021-03-22] MEDS: LORazepam 2 MG TABLET PO PRN ×3 (01:16→16:24)
[2021-03-22] MEDS: HALOPERIDOL 5 MG TABLET PO PRN ×3 (01:16→16:24)
[2021-03-22] MEDS: ZOLPIDEM TARTRATE 10 MG TABLET PO PRN (01:17)
[2021-03-22 01:43] VITALS: BP 132/80
[2021-03-22] MEDS: LITHIUM CARBONATE 300 MG CAPSULE PO SCH ×2 (08:29→16:23)
[2021-03-22] MEDS: ATENOLOL 50 MG TABLET PO SCH (08:29)
[2021-03-22] MEDS: QUEtiapine FUMARATE 200 MG TABLET PO SCH ×2 (08:29→16:24)
[2021-03-22] MEDS: BACITRACIN 28 GM OINTMENT TP SCH ×2 (08:29→17:02)
[2021-03-22 08:51] VITALS: BP 131/72
[2021-03-22 16:17] VITALS: BP 118/75
[2021-03-23] MEDS: LORazepam 2 MG TABLET PO PRN ×2 (01:38→14:03)
[2021-03-23] MEDS: ZOLPIDEM TARTRATE 10 MG TABLET PO PRN (01:38)
[2021-03-23 06:22] VITALS: BP 110/64
[2021-03-23] MEDS: QUEtiapine FUMARATE 200 MG TABLET PO SCH ×2 (08:13→16:22)
[2021-03-23] MEDS: LITHIUM CARBONATE 300 MG CAPSULE PO SCH ×2 (08:13→16:22)
[2021-03-23] MEDS: BACITRACIN 28 GM OINTMENT TP SCH ×2 (08:13→16:43)
[2021-03-23] MEDS: ATENOLOL 50 MG TABLET PO SCH (08:14)
[2021-03-23 08:25] VITALS: BP 130/83
[2021-03-23] MEDS: HALOPERIDOL 5 MG TABLET PO PRN (14:03)
[2021-03-23 16:19] VITALS: BP 114/68
[2021-03-24 00:20] VITALS: BP 124/72
[2021-03-24] MEDS: LORazepam 2 MG TABLET PO PRN ×2 (00:47→08:32)
[2021-03-24] MEDS: ZOLPIDEM TARTRATE 10 MG TABLET PO PRN (00:47)
[2021-03-24 07:40] LABS: BASOPHILS % (AUTO) 0.3 % (0.0-2.0); EOSINOPHILS % (AUTO) 4.8 % (1.0-6.0); HEMATOCRIT 38.8 % (41-53); HEMOGLOBIN 12.8 g/dL (13.5-17.5); LYMPHOCYTES # (AUTO) 2.3 K/uL (1.0-4.8); LYMPHOCYTES % (AUTO) 22.2 % (22.0-44.0); MEAN CORPUSCULAR HEMOGLOBIN 29.6 pg (26.0-34.0); MEAN CORPUSCULAR VOLUME 90 fL (80-100); MONOCYTES # (AUTO) 1.4 K/uL (0.1-1.0); MONOCYTES % (AUTO) 13.6 % (2.0-9.0); NEUTROPHILS % (AUTO) 59.1 % (40.0-70.0); PLATELET COUNT (AUTO) 427 K/uL (150-450); RED BLOOD CELL COUNT(AUTO) 4.33 MIL/uL (4.50-5.90); RED CELL DISTRIBUTION WIDTH 13.4 % (11.5-14.5)
[2021-03-24 07:57] LABS: HEMOGLOBIN A1C 5.5 % (3.8-5.6)
[2021-03-24 08:03] LABS: ALANINE AMINOTRANSFERASE 40 U/L (12-78); ALBUMIN 3.2 g/dL (3.4-5.0); ALKALINE PHOSPHATASE 118 U/L (46-116); ANION GAP 7 mmol/L (8-16); ASPARTATE AMINOTRANSFERASE 16 U/L (15-37); BILIRUBIN,TOTAL 0.2 mg/dL (0.1-1.0); CARBON DIOXIDE 28 mmol/L (22-29); CHLORIDE 107 mmol/L (98-107); CHOL/HDL RATIO 4.5 (4.2-7.3); CHOLESTEROL 116 mg/dL (131-200); CREATININE 0.64 mg/dL (0.60-1.30); FREE T4 (FREE THYROXINE) 0.84 ng/dL (0.76-1.46); GLOMERULAR FILTR. RATE CALC > 60 mL/min (>60); GLUCOSE,RANDOM 89 mg/dL (70-110); HDL CHOLESTEROL 26 mg/dL (40-60); LDL CHOL (CALC.) 66 mg/dL (0-130); POTASSIUM 4.2 mmol/L (3.5-5.1); SODIUM SERUM 142 mmol/L (136-145); THYROID STIMULATING HORMONE 1.21 uIU/mL (0.36-3.74); TOTAL PROTEIN, SERUM 7.2 g/dL (6.4-8.2); TRIGLYCERIDES 121 mg/dL (15-150); UREA NITROGEN, BLOOD 8 mg/dL (7-18)
[2021-03-24 08:23] VITALS: BP 132/80
[2021-03-24] MEDS: LITHIUM CARBONATE 300 MG CAPSULE PO SCH ×2 (08:31→16:13)
[2021-03-24] MEDS: QUEtiapine FUMARATE 200 MG TABLET PO SCH ×2 (08:31→16:13)
[2021-03-24] MEDS: ATENOLOL 50 MG TABLET PO SCH (08:32)
[2021-03-24] MEDS: BACITRACIN 28 GM OINTMENT TP SCH ×2 (08:34→16:14)
[2021-03-24] MEDS: HALOPERIDOL 5 MG TABLET PO PRN (13:38)
[2021-03-24 16:14] VITALS: BP 115/64
[2021-03-24] MEDS: NICOTINE 21 MG/24 HOUR PATCH TD SCH (21:53)
[2021-03-25 00:09] VITALS: BP 111/73
[2021-03-25] MEDS: ZOLPIDEM TARTRATE 10 MG TABLET PO PRN (00:34)
[2021-03-25] MEDS: LORazepam 2 MG TABLET PO PRN ×3 (00:34→13:34)
[2021-03-25 06:44] VITALS: BP 120/71
[2021-03-25] MEDS: HALOPERIDOL 5 MG TABLET PO PRN ×2 (06:46→13:34)
[2021-03-25 09:17] VITALS: BP 124/83
[2021-03-25] MEDS: LITHIUM CARBONATE 300 MG CAPSULE PO SCH ×2 (10:00→16:41)
[2021-03-25] MEDS: ATENOLOL 50 MG TABLET PO SCH (10:00)
[2021-03-25] MEDS: NICOTINE 21 MG/24 HOUR PATCH TD SCH (10:00)
[2021-03-25] MEDS: QUEtiapine FUMARATE 200 MG TABLET PO SCH ×2 (10:01→16:41)
[2021-03-25] MEDS: BACITRACIN 28 GM OINTMENT TP SCH ×2 (10:02→16:50)
[2021-03-25 16:37] VITALS: BP 105/65
[2021-03-26 03:23] VITALS: BP_SYST 118; BP_SYST 132; BP_DIAS 78; BP_DIAS 81
[2021-03-26 06:52] LABS: COVID AG,FIA SOURCE NASOPHARYNGEAL
[2021-03-26 07:01] VITALS: BP 126/80
[2021-03-26] MEDS: LORazepam 2 MG TABLET PO PRN ×2 (07:03→22:21)
[2021-03-26] MEDS: HALOPERIDOL 5 MG TABLET PO PRN ×2 (07:03→22:21)
[2021-03-26 08:29] VITALS: BP 113/75
[2021-03-26] MEDS: ATENOLOL 50 MG TABLET PO SCH (08:53)
[2021-03-26] MEDS: LITHIUM CARBONATE 300 MG CAPSULE PO SCH ×2 (08:53→16:21)
[2021-03-26] MEDS: QUEtiapine FUMARATE 200 MG TABLET PO SCH ×2 (08:54→16:21)
[2021-03-26] MEDS: NICOTINE 21 MG/24 HOUR PATCH TD SCH (08:55)
[2021-03-26] MEDS: BACITRACIN 28 GM OINTMENT TP SCH ×2 (08:56→16:23)
[2021-03-26 16:26] VITALS: BP 130/83
[2021-03-27 00:53] VITALS: BP 129/80
[2021-03-27 08:09] VITALS: BP 140/81
[2021-03-27] MEDS: NICOTINE 21 MG/24 HOUR PATCH TD SCH (08:32)
[2021-03-27] MEDS: QUEtiapine FUMARATE 200 MG TABLET PO SCH ×2 (08:32→16:11)
[2021-03-27] MEDS: LITHIUM CARBONATE 300 MG CAPSULE PO SCH ×2 (08:33→16:11)
[2021-03-27] MEDS: ATENOLOL 50 MG TABLET PO SCH (08:33)
[2021-03-27] MEDS: BACITRACIN 28 GM OINTMENT TP SCH ×2 (08:34→16:12)
[2021-03-27] MEDS ORDERED: PALIPERIDONE PALMITATE 234 MG/1.5 ML SYRINGE IM ONE (15:00)
[2021-03-27 16:16] VITALS: BP 120/76
[2021-03-27] MEDS: LORazepam 2 MG TABLET PO PRN (20:35)
[2021-03-27] MEDS: HALOPERIDOL 5 MG TABLET PO PRN (20:35)
[2021-03-28 01:22] VITALS: BP 131/77
[2021-03-28 08:16] VITALS: BP 128/76
[2021-03-28] MEDS: LITHIUM CARBONATE 300 MG CAPSULE PO SCH ×2 (09:05→16:29)
[2021-03-28] MEDS: QUEtiapine FUMARATE 200 MG TABLET PO SCH ×2 (09:05→16:29)
[2021-03-28] MEDS: MULTIVITAMINS WITH MINERALS, THERAPEUTIC TABLET PO SCH (09:05)
[2021-03-28] MEDS: ATENOLOL 50 MG TABLET PO SCH (09:05)
[2021-03-28] MEDS: NICOTINE 21 MG/24 HOUR PATCH TD SCH (09:06)
[2021-03-28] MEDS: BACITRACIN 28 GM OINTMENT TP SCH ×2 (09:06→16:29)
[2021-03-28 16:11] VITALS: BP 119/82
[2021-03-28] MEDS: MAG HYDROX/AL HYDROX/SIMETH ES 30 ML SUSPENSION UDCUP PO PRN (16:51)
[2021-03-28] MEDS: LORazepam 2 MG TABLET PO PRN (18:21)
[2021-03-28] MEDS: HALOPERIDOL 5 MG TABLET PO PRN (18:21)
[2021-03-29 04:23] VITALS: BP 116/70
[2021-03-29] MEDS: OMEPRAZOLE 20 MG CAPSULE PO PRN (08:13)
[2021-03-29 08:17] VITALS: BP 137/82
[2021-03-29] MEDS: LITHIUM CARBONATE 300 MG CAPSULE PO SCH ×2 (10:34→16:35)
[2021-03-29] MEDS: NICOTINE 21 MG/24 HOUR PATCH TD SCH (10:35)
[2021-03-29] MEDS: QUEtiapine FUMARATE 200 MG TABLET PO SCH ×2 (10:35→16:35)
[2021-03-29] MEDS: MULTIVITAMINS WITH MINERALS, THERAPEUTIC TABLET PO SCH (10:35)
[2021-03-29] MEDS: BACITRACIN 28 GM OINTMENT TP SCH ×2 (10:36→16:36)
[2021-03-29] MEDS: ATENOLOL 50 MG TABLET PO SCH (10:40)
[2021-03-29 16:13] VITALS: BP 130/82
[2021-03-29] MEDS: MAG HYDROX/AL HYDROX/SIMETH ES 30 ML SUSPENSION UDCUP PO PRN (19:43)
[2021-03-30 05:44] VITALS: BP 126/88
[2021-03-30 08:22] VITALS: BP 136/90
[2021-03-30] MEDS: ATENOLOL 50 MG TABLET PO SCH (08:32)
[2021-03-30] MEDS: LITHIUM CARBONATE 300 MG CAPSULE PO SCH ×2 (08:32→16:32)
[2021-03-30] MEDS: QUEtiapine FUMARATE 200 MG TABLET PO SCH ×2 (08:32→16:32)
[2021-03-30] MEDS: MULTIVITAMINS WITH MINERALS, THERAPEUTIC TABLET PO SCH (08:32)
[2021-03-30] MEDS: NICOTINE 21 MG/24 HOUR PATCH TD SCH (08:33)
[2021-03-30] MEDS: BACITRACIN 28 GM OINTMENT TP SCH ×2 (08:33→16:46)
[2021-03-30] MEDS: MAG HYDROX/AL HYDROX/SIMETH ES 30 ML SUSPENSION UDCUP PO PRN (13:47)
[2021-03-30] MEDS: LORazepam 2 MG TABLET PO PRN (15:14)
[2021-03-30 16:26] VITALS: BP 121/79
[2021-03-30] MEDS: HALOPERIDOL 5 MG TABLET PO PRN (20:22)
[2021-03-30] MEDS: ZOLPIDEM TARTRATE 10 MG TABLET PO PRN (20:41)
[2021-03-31] MEDS: LITHIUM CARBONATE 300 MG CAPSULE PO SCH ×2 (08:19→16:33)
[2021-03-31] MEDS: MULTIVITAMINS WITH MINERALS, THERAPEUTIC TABLET PO SCH (08:19)
[2021-03-31] MEDS: QUEtiapine FUMARATE 200 MG TABLET PO SCH ×2 (08:19→16:33)
[2021-03-31] MEDS: ATENOLOL 50 MG TABLET PO SCH (08:20)
[2021-03-31] MEDS: NICOTINE 21 MG/24 HOUR PATCH TD SCH (08:21)
[2021-03-31 08:23] VITALS: BP 138/92
[2021-03-31] MEDS: OMEPRAZOLE 20 MG CAPSULE PO PRN (11:33)
[2021-03-31 15:30] VITALS: BP 120/88
[2021-03-31 15:35] VITALS: BP 130/88
[2021-03-31 16:24] VITALS: BP 110/73
[2021-03-31] MEDS: HALOPERIDOL 5 MG TABLET PO PRN (19:15)
[2021-03-31] MEDS: LORazepam 2 MG TABLET PO PRN (19:15)
[2021-04-01 06:06] VITALS: BP 125/71
[2021-04-01 08:13] VITALS: BP 139/87
[2021-04-01] MEDS: MULTIVITAMINS WITH MINERALS, THERAPEUTIC TABLET PO SCH (09:04)
[2021-04-01] MEDS: QUEtiapine FUMARATE 200 MG TABLET PO SCH ×2 (09:04→16:33)
[2021-04-01] MEDS: LITHIUM CARBONATE 300 MG CAPSULE PO SCH ×3 (09:04→16:33)
[2021-04-01] MEDS: ATENOLOL 50 MG TABLET PO SCH (09:05)
[2021-04-01] MEDS: NICOTINE 21 MG/24 HOUR PATCH TD SCH (09:09)
[2021-04-01 16:37] VITALS: BP 120/63
[2021-04-02 00:50] VITALS: BP 119/76
[2021-04-02] MEDS: ZOLPIDEM TARTRATE 10 MG TABLET PO PRN (01:00)
[2021-04-02] MEDS: LORazepam 2 MG TABLET PO PRN (01:00)
[2021-04-02 08:10] LABS: COVID AG,FIA SOURCE NASOPHARYNGEAL
[2021-04-02 08:36] VITALS: BP 138/91
[2021-04-02] MEDS: NICOTINE 21 MG/24 HOUR PATCH TD SCH (09:03)
[2021-04-02] MEDS: ATENOLOL 50 MG TABLET PO SCH (09:04)
[2021-04-02] MEDS: LITHIUM CARBONATE 300 MG CAPSULE PO SCH ×3 (09:04→16:39)
[2021-04-02] MEDS: MULTIVITAMINS WITH MINERALS, THERAPEUTIC TABLET PO SCH (09:04)
[2021-04-02] MEDS: QUEtiapine FUMARATE 200 MG TABLET PO SCH ×2 (09:04→16:39)
[2021-04-02 16:29] VITALS: BP 123/68
[2021-04-02] MEDS: MAG HYDROX/AL HYDROX/SIMETH ES 30 ML SUSPENSION UDCUP PO PRN (21:58)
[2021-04-03] MEDS: ZOLPIDEM TARTRATE 10 MG TABLET PO PRN ×2 (00:06→22:19)
[2021-04-03 00:55] VITALS: BP 135/81
[2021-04-03 08:37] VITALS: BP 126/87
[2021-04-03] MEDS ORDERED: PALIPERIDONE PALMITATE 234 MG/1.5 ML SYRINGE IM SCH (09:00)
[2021-04-03] MEDS: QUEtiapine FUMARATE 200 MG TABLET PO SCH ×2 (10:06→16:35)
[2021-04-03] MEDS: LITHIUM CARBONATE 300 MG CAPSULE PO SCH ×3 (10:06→16:35)
[2021-04-03] MEDS: MULTIVITAMINS WITH MINERALS, THERAPEUTIC TABLET PO SCH (10:06)
[2021-04-03] MEDS: ATENOLOL 50 MG TABLET PO SCH (10:07)
[2021-04-03] MEDS: HALOPERIDOL 5 MG TABLET PO PRN ×2 (10:07→21:27)
[2021-04-03] MEDS: NICOTINE 21 MG/24 HOUR PATCH TD SCH (10:26)
[2021-04-03 16:20] VITALS: BP 105/73
[2021-04-03] MEDS: MAG HYDROX/AL HYDROX/SIMETH ES 30 ML SUSPENSION UDCUP PO PRN (21:47)
[2021-04-04 00:48] VITALS: BP 112/70
[2021-04-04] MEDS: LITHIUM CARBONATE 300 MG CAPSULE PO SCH ×3 (08:07→16:30)
[2021-04-04] MEDS: MULTIVITAMINS WITH MINERALS, THERAPEUTIC TABLET PO SCH (08:07)
[2021-04-04] MEDS: ATENOLOL 50 MG TABLET PO SCH (08:07)
[2021-04-04] MEDS: QUEtiapine FUMARATE 200 MG TABLET PO SCH ×2 (08:08→16:30)
[2021-04-04] MEDS: NICOTINE 21 MG/24 HOUR PATCH TD SCH (08:08)
[2021-04-04] MEDS: LORazepam 2 MG TABLET PO PRN (08:08)
[2021-04-04 08:09] VITALS: BP 114/67
[2021-04-04] MEDS: HALOPERIDOL 5 MG TABLET PO PRN (09:58)
[2021-04-04 16:13] VITALS: BP 132/73
[2021-04-05 07:32] VITALS: BP 123/72
[2021-04-05 08:18] VITALS: BP 137/91
[2021-04-05] MEDS: QUEtiapine FUMARATE 200 MG TABLET PO SCH ×2 (08:25→16:23)
[2021-04-05] MEDS: LORazepam 2 MG TABLET PO PRN ×2 (08:25→18:04)
[2021-04-05] MEDS: LITHIUM CARBONATE 300 MG CAPSULE PO SCH ×3 (08:25→16:23)
[2021-04-05] MEDS: ATENOLOL 50 MG TABLET PO SCH (08:25)
[2021-04-05] MEDS: MULTIVITAMINS WITH MINERALS, THERAPEUTIC TABLET PO SCH (08:25)
[2021-04-05] MEDS: NICOTINE 21 MG/24 HOUR PATCH TD SCH (08:26)
[2021-04-05 16:08] VITALS: BP 135/97
[2021-04-05] MEDS: HALOPERIDOL 5 MG TABLET PO PRN (18:04)
[2021-04-05] MEDS: MAG HYDROX/AL HYDROX/SIMETH ES 30 ML SUSPENSION UDCUP PO PRN (18:05)
[2021-04-05] MEDS: ZOLPIDEM TARTRATE 10 MG TABLET PO PRN (20:16)
[2021-04-06 02:34] VITALS: BP 128/78
[2021-04-06] MEDS: NICOTINE 21 MG/24 HOUR PATCH TD SCH (08:54)
[2021-04-06] MEDS: ATENOLOL 50 MG TABLET PO SCH (08:55)
[2021-04-06] MEDS: LITHIUM CARBONATE 300 MG CAPSULE PO SCH ×3 (08:56→16:40)
[2021-04-06] MEDS: MULTIVITAMINS WITH MINERALS, THERAPEUTIC TABLET PO SCH (08:56)
[2021-04-06] MEDS: QUEtiapine FUMARATE 200 MG TABLET PO SCH ×2 (08:57→16:40)
[2021-04-06 09:48] VITALS: BP 130/80
[2021-04-06 18:51] VITALS: BP 121/76
[2021-04-07 00:10] VITALS: BP 129/84
[2021-04-07 08:24] VITALS: BP 136/91
[2021-04-07] MEDS: NICOTINE 21 MG/24 HOUR PATCH TD SCH (09:10)
[2021-04-07] MEDS: LITHIUM CARBONATE 300 MG CAPSULE PO SCH ×2 (09:10→12:26)
[2021-04-07] MEDS: QUEtiapine FUMARATE 200 MG TABLET PO SCH ×2 (09:11→16:40)
[2021-04-07] MEDS: MULTIVITAMINS WITH MINERALS, THERAPEUTIC TABLET PO SCH (09:11)
[2021-04-07] MEDS: ATENOLOL 50 MG TABLET PO SCH (09:12)
[2021-04-07] MEDS ORDERED: LITHIUM CARBONATE 600 MG CAPSULE PO SCH (17:00)
[2021-04-07] MEDS: ZOLPIDEM TARTRATE 10 MG TABLET PO PRN (20:48)
[2021-04-08 00:43] VITALS: BP 138/79
[2021-04-08] MEDS: QUEtiapine FUMARATE 200 MG TABLET PO SCH ×2 (08:32→16:33)
[2021-04-08] MEDS: LITHIUM CARBONATE 600 MG CAPSULE PO SCH ×2 (08:32→16:33)
[2021-04-08] MEDS: MULTIVITAMINS WITH MINERALS, THERAPEUTIC TABLET PO SCH (08:32)
[2021-04-08] MEDS: ATENOLOL 50 MG TABLET PO SCH (08:32)
[2021-04-08] MEDS: NICOTINE 21 MG/24 HOUR PATCH TD SCH (08:33)
[2021-04-08] MEDS: MAG HYDROX/AL HYDROX/SIMETH ES 30 ML SUSPENSION UDCUP PO PRN (11:52)
[2021-04-08 16:21] VITALS: BP 117/72
[2021-04-08] MEDS: ZOLPIDEM TARTRATE 10 MG TABLET PO PRN (21:07)
[2021-04-09 06:02] VITALS: BP 129/77
[2021-04-09 08:01] LABS: COVID AG,FIA SOURCE NASOPHARYNGEAL
[2021-04-09] MEDS: QUEtiapine FUMARATE 200 MG TABLET PO SCH ×2 (08:48→16:52)
[2021-04-09] MEDS: LITHIUM CARBONATE 600 MG CAPSULE PO SCH ×2 (08:48→16:52)
[2021-04-09] MEDS: NICOTINE 21 MG/24 HOUR PATCH TD SCH (08:48)
[2021-04-09] MEDS: MULTIVITAMINS WITH MINERALS, THERAPEUTIC TABLET PO SCH (08:48)
[2021-04-09] MEDS: ATENOLOL 50 MG TABLET PO SCH (08:48)
[2021-04-09] MEDS: LORazepam 2 MG TABLET PO PRN (13:19)
[2021-04-09 16:21] VITALS: BP 104/62
[2021-04-09] MEDS: HALOPERIDOL 5 MG TABLET PO PRN (19:10)
[2021-04-09] MEDS: ZOLPIDEM TARTRATE 10 MG TABLET PO PRN (20:44)
[2021-04-10 05:42] VITALS: BP 118/72
[2021-04-10] MEDS: NICOTINE 21 MG/24 HOUR PATCH TD SCH (08:30)
[2021-04-10] MEDS: ATENOLOL 50 MG TABLET PO SCH (08:30)
[2021-04-10] MEDS: MULTIVITAMINS WITH MINERALS, THERAPEUTIC TABLET PO SCH (08:30)
[2021-04-10] MEDS: LITHIUM CARBONATE 600 MG CAPSULE PO SCH ×2 (08:30→16:13)
[2021-04-10] MEDS: QUEtiapine FUMARATE 200 MG TABLET PO SCH ×2 (08:30→16:13)
[2021-04-10 08:51] VITALS: BP 114/72
[2021-04-10] MEDS: HALOPERIDOL 5 MG TABLET PO PRN ×2 (15:43→20:57)
[2021-04-10 16:30] VITALS: BP 117/76
[2021-04-10] MEDS: ZOLPIDEM TARTRATE 10 MG TABLET PO PRN (20:57)
[2021-04-11 03:13] VITALS: BP 128/78
[2021-04-11 09:50] VITALS: BP 112/64
[2021-04-11] MEDS: NICOTINE 21 MG/24 HOUR PATCH TD SCH (09:57)
[2021-04-11] MEDS: ATENOLOL 50 MG TABLET PO SCH (09:58)
[2021-04-11] MEDS: QUEtiapine FUMARATE 200 MG TABLET PO SCH ×2 (09:58→16:46)
[2021-04-11] MEDS: MULTIVITAMINS WITH MINERALS, THERAPEUTIC TABLET PO SCH (09:58)
[2021-04-11] MEDS: LITHIUM CARBONATE 600 MG CAPSULE PO SCH ×2 (09:58→16:46)
[2021-04-11] MEDS: LORazepam 2 MG TABLET PO PRN ×2 (13:21→17:45)
[2021-04-11] MEDS: HALOPERIDOL 5 MG TABLET PO PRN ×2 (13:21→17:45)
[2021-04-11 16:12] VITALS: BP 122/76
[2021-04-12 01:41] VITALS: BP 114/66
[2021-04-12 08:16] VITALS: BP 110/79
[2021-04-12] MEDS: ATENOLOL 50 MG TABLET PO SCH (09:44)
[2021-04-12] MEDS: NICOTINE 21 MG/24 HOUR PATCH TD SCH (09:44)
[2021-04-12] MEDS: QUEtiapine FUMARATE 200 MG TABLET PO SCH ×2 (09:44→16:40)
[2021-04-12] MEDS: MULTIVITAMINS WITH MINERALS, THERAPEUTIC TABLET PO SCH (09:44)
[2021-04-12] MEDS: LITHIUM CARBONATE 600 MG CAPSULE PO SCH ×2 (09:45→16:40)
[2021-04-12] MEDS: LORazepam 2 MG TABLET PO PRN (15:30)
[2021-04-12 16:18] VITALS: BP 119/64
[2021-04-12] MEDS: ZOLPIDEM TARTRATE 10 MG TABLET PO PRN (20:50)
[2021-04-13 07:05] VITALS: BP 116/71
[2021-04-13 08:53] VITALS: BP 110/61
[2021-04-13] MEDS: MULTIVITAMINS WITH MINERALS, THERAPEUTIC TABLET PO SCH (08:57)
[2021-04-13] MEDS: QUEtiapine FUMARATE 200 MG TABLET PO SCH (08:57)
[2021-04-13] MEDS: LITHIUM CARBONATE 600 MG CAPSULE PO SCH (08:57)
[2021-04-13] MEDS: NICOTINE 21 MG/24 HOUR PATCH TD SCH ×2 (08:57→09:00)
[2021-04-13] MEDS: ATENOLOL 50 MG TABLET PO SCH (08:57)
[2021-04-13] MEDS ORDERED: ATEN-187 PO (13:52)
[2021-04-13] MEDS ORDERED: LITH600C5 PO (18:32)
== END 2021-04-13 15:00 | disposition home or self-care (01) | DRG 750 ==
LOC: EMS 16:21 → B3A 19:20 → B2S 03-24 16:23
PROVIDERS: ADMIT Psychiatry & Neurology Psychiatry; ATTEND Psychiatry & Neurology Psychiatry
DX: F25.9 Schizoaffective disorder, unspecified (principal); F12.10 Cannabis abuse, uncomplicated; F19.10 Other psychoactive substance abuse, uncomplicated; F31.9 Bipolar disorder, unspecified; G47.00 Insomnia, unspecified; F41.9 Anxiety disorder, unspecified; Z20.822 Contact with and (suspected) exposure to COVID-19; Z79.899 Other long term (current) drug therapy; Z72.0 Tobacco use; Z71.6 Tobacco abuse counseling
CPT/HCPCS: 80053; 80061; 80178; 83036; 84439; 84443; 85025; 87081; 99285; J1200; J1630; J2060